=== PATIENT | female | born 1995 | race American Indian/Alaskan Native ===

== ENCOUNTER 2020-05-27 15:40 | Emergency (ER) | payer SELFPAY | END 2020-05-27 17:07 | disposition left against medical advice (07) | LOC: DL.ED 15:40 | DX: Z53.21 Procedure and treatment not carried out due to patient leaving prior to being seen by health care provider (principal) ==

== ENCOUNTER 2020-05-27 19:09 | Emergency (ER) | payer MEDICAID ==
[2020-05-27 20:44] LABS: ANION GAP 14.7 mEq/L (7-13); CHLORIDE,CL 102 mmol/L (98-107); SODIUM,NA 137 mmol/L (136-145)
--- NOTE | 2020-05-27 21:46 | EDM.PDOC ---
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 No fever chills. Reports 5 weeks . No complications with 4 years ago. No prior hx ovarian cysts. No vomiting Right Lower Abdomen Pain Score (Numeric/FACES): 7 - Related Data Allergies Allergy/AdvReac Type Severity Reaction Status Date / Time No Known Allergies Allergy Verified 05/27/20 20:04 Home Meds: Home Meds . 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: Musculoskeletal History: Reports: None Neurological History: Reports: None Psychiatric History: Reports: None Endocrine/Metabolic History: Reports: None Hematologic History: Reports: None Immunologic History: Reports: None Oncologic (Cancer) History: Reports: None Dermatologic History: Reports: None - Infectious Disease History Infectious Disease History: Reports: None Social & Family History - Tobacco Use Smoking Status *Q: Light Tobacco Smoker Years of Tobacco use: 9 Packs/Tins Daily: 0.4 - Recreational Drug Use Recreational Drug Use: No ED ROS GENERAL - Review of Systems Review Of Systems: Comprehensive ROS is negative, except as noted in HPI. Constitutional: Denies: Fever, Chills ED EXAM - Physical Exam Exam: See Below Exam Limited By: No Limitations General Appearance: Alert, No Apparent Distress, Anxious Eye Exam: Bilateral Eye: EOMI, PERRL Ears: Normal External Exam, Hearing Grossly Normal Nose: Normal Inspection Throat/Mouth: Normal Inspection Head: Atraumatic, Normocephalic Neck: Normal Inspection Respiratory/Chest: No Respiratory Distress, Lungs Clear, Normal Breath Sounds Cardiovascular: Normal Peripheral Pulses, Regular Rate, Rhythm GI/Abdominal Exam: Normal Bowel Sounds, Soft, Tender (right groin lower right quadrant). No: Distended, Guarding, Rebound, Hernia Extremities: Normal Inspection Neurological: Alert, Oriented, Normal Cognition Psychiatric: Normal Affect, Normal Mood Skin Exam: Warm, Dry, Intact Course - Vital Signs Last Recorded V/S: Last Vital Signs Temp 97.3 F 05/27/20 20:16 Pulse 65 05/27/20 20:16 Resp 18 05/27/20 20:16 BP 113/69 05/27/20 20:16 Pulse Ox 99 05/27/20 20:16 - Orders/Labs/Meds Orders: Active Orders 24 hr Category Date Time Status CULTURE URINE [RM] Stat Lab 05/27/20 20:10 Received Labs: Laboratory Tests 05/27/20 05/27/20 05/27/20 Range/Units 20:10 20:10 20:10 WBC (5.0-10.0) 10^3/uL RBC (4.2-5.4) 10^6/uL Hgb (12.0-16.0) g/dL Hct (37.0-47.0) % MCV (80-100) fL MCH (27.0-34.0) pg MCHC (33.0-35.0) g/dL Plt Count (150-450) 10^3/uL Neut % (Auto) (42.2-75.2) % Lymph % (Auto) (20.5-50.1) % [place] % (Auto) (2-8) % Eos % (Auto) (1.0-3.0) % Baso % (Auto) (0.0-1.0) % Sodium 137 (136-145) mmol/L Potassium 3.7 (3.5-5.1) mmol/L Chloride 102 (98-107) mmol/L Carbon Dioxide 24 (21-32) mmol/L Anion Gap 14.7 H (7-13) mEq/L BUN 5 L (7-18) mg/dL Creatinine 0.59 (0.55-1.02) mg/dL Est Cr Clr Drug Dosing 110.35 mL/min Estimated GFR (MDRD) > 60 BUN/Creatinine Ratio 8.5 (No establ ref range) Glucose 77 (74-99) mg/dL Calcium 9.2 (8.5-10.1) mg/dL Total Bilirubin 0.4 (0.2-1.0) mg/dL AST 18 (15-37) U/L ALT 24 (14-59) U/L Alkaline Phosphatase 97 (46-116) U/L Total Protein 7.9 (6.4-8.2) g/dL Albumin 3.6 (3.4-5.0) g/dL Globulin 4.3 Albumin/Globulin Ratio 0.8 HCG, Quant 6585 H (0-6) mIU/mL Urine Color Yellow (YELLOW) Urine Appearance Slightly cloudy (CLEAR) Urine pH 6.5 (5.0-9.0) Ur Specific [place] 1.020 (1.005-1.030) Urine Protein Negative (NEGATIVE) Urine Glucose (UA) Negative (NEGATIVE) Urine Ketones Negative (NEGATIVE) Urine Occult Blood Negative (NEGATIVE) Urine Nitrite Negative (NEGATIVE) Urine Bilirubin Negative (NEGATIVE) Urine Urobilinogen 0.2 (0.2-1.0) mg/dL Ur Leukocyte Esterase Trace H (NEGATIVE) Urine RBC 0-5 /HPF Urine WBC 0-5 (0-5/HPF) /HPF Ur Epithelial Cells Few (NOT SEEN) /HPF Urine Bacteria Rare (0-FEW/HPF) /HPF Urine Mucus Rare (NOT SEEN) /LPF Urine Opiates Screen (NEGATIVE) Ur Oxycodone Screen (NEGATIVE) Urine Methadone Screen (NEGATIVE) Ur Barbiturates Screen (NEGATIVE) U Tricyclic Antidepress (NEGATIVE) Ur Phencyclidine Scrn (NEGATIVE) Ur Amphetamine Screen (NEGATIVE) U Methamphetamines Scrn (NEGATIVE) Urine MDMA Screen (NEGATIVE) U Benzodiazepines Scrn (NEGATIVE) Urine Cocaine Screen (NEGATIVE) U Marijuana (THC) Screen (NEGATIVE) 05/27/20 05/27/20 Range/Units 20:10 20:18 WBC 11.6 H (5.0-10.0) 10^3/uL RBC 4.67 (4.2-5.4) 10^6/uL Hgb 12.6 (12.0-16.0) g/dL Hct 38.3 (37.0-47.0) % MCV 82.0 (80-100) fL MCH 27.0 (27.0-34.0) pg MCHC 32.9 L (33.0-35.0) g/dL Plt Count 299 (150-450) 10^3/uL Neut % (Auto) 76.3 H (42.2-75.2) % Lymph % (Auto) 17.8 L (20.5-50.1) % [place] % (Auto) 4.5 (2-8) % Eos % (Auto) 1.2 (1.0-3.0) % Baso % (Auto) 0.2 (0.0-1.0) % Sodium (136-145) mmol/L Potassium (3.5-5.1) mmol/L Chloride (98-107) mmol/L Carbon Dioxide (21-32) mmol/L Anion Gap (7-13) mEq/L BUN (7-18) mg/dL Creatinine (0.55-1.02) mg/dL Est Cr Clr Drug Dosing mL/min Estimated GFR (MDRD) BUN/Creatinine Ratio (No establ ref range) Glucose (74-99) mg/dL Calcium (8.5-10.1) mg/dL Total Bilirubin (0.2-1.0) mg/dL AST (15-37) U/L ALT (14-59) U/L Alkaline Phosphatase (46-116) U/L Total Protein (6.4-8.2) g/dL Albumin (3.4-5.0) g/dL Globulin Albumin/Globulin Ratio HCG, Quant (0-6) mIU/mL Urine Color (YELLOW) Urine Appearance (CLEAR) Urine pH (5.0-9.0) Ur Specific [place] (1.005-1.030) Urine Protein (NEGATIVE) Urine Glucose (UA) (NEGATIVE) Urine Ketones (NEGATIVE) Urine Occult Blood (NEGATIVE) Urine Nitrite (NEGATIVE) Urine Bilirubin (NEGATIVE) Urine Urobilinogen (0.2-1.0) mg/dL Ur Leukocyte Esterase (NEGATIVE) Urine RBC /HPF Urine WBC (0-5/HPF) /HPF Ur Epithelial Cells (NOT SEEN) /HPF Urine Bacteria (0-FEW/HPF) /HPF Urine Mucus (NOT SEEN) /LPF Urine Opiates Screen Negative (NEGATIVE) Ur Oxycodone Screen Negative (NEGATIVE) Urine Methadone Screen Negative (NEGATIVE) Ur Barbiturates Screen Negative (NEGATIVE) U Tricyclic Antidepress Negative (NEGATIVE) Ur Phencyclidine Scrn Negative (NEGATIVE) Ur Amphetamine Screen Negative (NEGATIVE) U Methamphetamines Scrn Negative (NEGATIVE) Urine MDMA Screen Negative (NEGATIVE) U Benzodiazepines Scrn Negative (NEGATIVE) Urine Cocaine Screen Negative (NEGATIVE) U Marijuana (THC) Screen Negative (NEGATIVE) Departure - Departure Time of Disposition: 22:24 Disposition: Home, Self-Care 01 Condition: Good Clinical Impression: Pain in pelvis, Intrauterine - Discharge Information *PRESCRIPTION DRUG MONITORING PROGRAM REVIEWED*: No *COPY OF PRESCRIPTION DRUG MONITORING REPORT IN PATIENT ROBIN: No Instructions: Round Ligament Pain Referrals: PCP,None [Ordering Only Provider] - Forms: ED Department Discharge Additional Instructions: rest light activity increase fluid intake tylenol for discomfort follow up in clinic if symptoms worsen Sepsis Event Note (ED) - Evaluation Sepsis Screening Result: No Definite Risk - Focused Exam Vital Signs: Vital Signs Temp Pulse Resp BP Pulse Ox 05/27/20 20:16 97.3 F 65 18 113/69 99 - My Orders Last 24 Hours: My Active Orders 05/27/20 20:10 CULTURE URINE [RM] Stat - Assessment/Plan Last 24 Hours: My Active Orders 05/27/20 20:10 CULTURE URINE [RM] Stat
--- NOTE | 2020-05-27 22:19 | US ---
PROCEDURE INFORMATION: Exam: US , Limited Exam date and time: 05/27/2020 9:48 PM Age: 25 years old Clinical indication: complicated by abdominal or pelvic pain; Other: Cervix; Gestational age or lmp: 5w2d; ; Additional info: Roq pain 5 weeks pg 6500 quant TECHNIQUE: Imaging protocol: Real-time ultrasound of the maternal uterus with image documentation. Exam focused on the clinical indication. COMPARISON: No relevant prior studies available. FINDINGS: Gestation: There is a single, living intrauterine gestation. The gestational sac contains a recognizable yolk sac. BIOMETRY: Gestational age (AUA): Mean sac diameter corresponds to an estimated gestational age of 5 weeks 4 days. Estimated due date (AUA): Estimated date of delivery based on this sonogram is 01/23/2021 MATERNAL: Right adnexa: The right ovary measures 2 by 2.6 x 2.4 cm. It contains a 1.3 cm corpus luteum. The ovary has normal morphology and appropriate color Doppler activity. Left adnexa: The left ovary measures 1.2 by 2.3 x 2.4 cm. The ovary has normal morphology and appropriate color Doppler activity. Intraperitoneal space: There is a small amount of free fluid present. IMPRESSION: Single, 5 week 4 day intrauterine gestation.
--- NOTE | 2020-05-28 14:09 | US ---
PROCEDURE INFORMATION: Exam: US , Transvaginal Exam date and time: 05/27/2020 9:48 PM Age: 25 years old Clinical indication: complicated by abdominal or pelvic pain; Other: Cervix; Gestational age or lmp: 5w2d; ; Additional info: Roq pain 5 weeks pg 6500 quant TECHNIQUE: Imaging protocol: Real-time transvaginal obstetrical ultrasound of the maternal pelvis and a first trimester with image documentation. Transvaginal imaging was used for better evaluation of the fetus and adnexa. COMPARISON: No relevant prior studies available. FINDINGS: Gestation: There is a single, living intrauterine gestation. The gestational sac contains a recognizable yolk sac. BIOMETRY: Gestational age (AUA): Mean sac diameter corresponds to an estimated gestational age of 5 weeks 4 days. Estimated due date (AUA): Estimated date of delivery based on this sonogram is 01/23/2021 MATERNAL: Right adnexa: The right ovary measures 2 by 2.6 x 2.4 cm. It contains a 1.3 cm corpus luteum. The ovary has normal morphology and appropriate color Doppler activity. Left adnexa: The left ovary measures 1.2 by 2.3 x 2.4 cm. The ovary has normal morphology and appropriate color Doppler activity. Intraperitoneal space: There is a small amount of free fluid present. IMPRESSION: Single, 5 week 4 day intrauterine gestation.
== END 2020-05-27 22:30 | disposition home or self-care (01) ==
LOC: DL.ED 19:09
DX: R10.2 Pelvic and perineal pain (principal); O00.01 Abdominal pregnancy with intrauterine pregnancy; O99.89 Other specified diseases and conditions complicating pregnancy, childbirth and the puerperium; F17.210 Nicotine dependence, cigarettes, uncomplicated; Z3A.01 Less than 8 weeks gestation of pregnancy
CPT/HCPCS: 36415; 76815; 76817; 80053; 80305-QW; 81001; 84702; 85025; 87086; 99283; 99284-25

== ENCOUNTER 2020-06-29 19:06 | Emergency (ER) | payer MEDICAID ==
--- NOTE | 2020-06-29 19:27 | EDM.PDOC ---
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 been having on-off cramps past week and today had some spotting not soaking a pad ~ hour ago. just moved here and planning [facility] visit. [id number]. states prior wasn't like this. - Related Data Allergies Allergy/AdvReac Type Severity Reaction Status Date / Time No Known Allergies Allergy Verified 06/29/20 19:20 Home Meds: Home Meds . 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: Musculoskeletal History: Reports: None Neurological History: Reports: None Psychiatric History: Reports: None Endocrine/Metabolic History: Reports: None Hematologic History: Reports: None Immunologic History: Reports: None Oncologic (Cancer) History: Reports: None Dermatologic History: Reports: None - Infectious Disease History Infectious Disease History: Reports: None Social & Family History - Tobacco Use Tobacco Use Status *Q: Never Tobacco User - Caffeine Use Caffeine Use: Reports: None ED ROS GENERAL - Review of Systems Review Of Systems: Comprehensive ROS is negative, except as noted in HPI. ED EXAM - Physical Exam Exam: See Below Exam Limited By: No Limitations General Appearance: Alert, WD/WN, No Apparent Distress. No: Active Emesis Ears: Hearing Grossly Normal Throat/Mouth: Normal Voice, No Airway Compromise Head: Atraumatic Neck: Non-Tender, Full Range of Motion Respiratory/Chest: No Respiratory Distress Cardiovascular: Regular Rate, Rhythm GI/Abdominal Exam: Soft, Tender, Other (minor low abd discomfort) Rectal Exam: Deferred (Female) Exam: Other (deferred) Neurological: Alert, Oriented, Normal Cognition, Normal Gait, No Motor/Sensory Deficits Psychiatric: Normal Affect, Normal Mood Skin Exam: Warm, Dry, Normal Color Lymphatic: No Adenopathy Course - Vital Signs Last Recorded V/S: Last Vital Signs Temp 36.3 C 06/29/20 19:14 Pulse 91 06/29/20 19:14 Resp 19 06/29/20 19:14 BP 145/87 H 06/29/20 19:14 Pulse Ox 100 06/29/20 19:14 - Orders/Labs/Meds Labs: Laboratory Tests 06/29/20 06/29/20 06/29/20 Range/Units 19:25 19:25 19:25 WBC 11.4 H (5.0-10.0) 10^3/uL RBC 4.39 (4.2-5.4) 10^6/uL Hgb 12.0 (12.0-16.0) g/dL Hct 36.3 L (37.0-47.0) % MCV 82.7 (80-100) fL MCH 27.3 (27.0-34.0) pg MCHC 33.1 (33.0-35.0) g/dL Plt Count 254 (150-450) 10^3/uL Neut % (Auto) 77.8 H (42.2-75.2) % Lymph % (Auto) 17.2 L (20.5-50.1) % [place] % (Auto) 4.2 (2-8) % Eos % (Auto) 0.6 L (1.0-3.0) % Baso % (Auto) 0.2 (0.0-1.0) % Sodium (136-145) mmol/L Potassium (3.5-5.1) mmol/L Chloride (98-107) mmol/L Carbon Dioxide (21-32) mmol/L Anion Gap (7-13) mEq/L BUN (7-18) mg/dL Creatinine (0.55-1.02) mg/dL Est Cr Clr Drug Dosing mL/min Estimated GFR (MDRD) BUN/Creatinine Ratio (No establ ref range) Glucose (74-99) mg/dL Calcium (8.5-10.1) mg/dL Total Bilirubin (0.2-1.0) mg/dL AST (15-37) U/L ALT (14-59) U/L Alkaline Phosphatase (46-116) U/L Total Protein (6.4-8.2) g/dL Albumin (3.4-5.0) g/dL Globulin g/dL Albumin/Globulin Ratio HCG, Quant (0-6) mIU/mL Urine Color Yellow (YELLOW) Urine Appearance Slightly cloudy (CLEAR) Urine pH 7.0 (5.0-9.0) Ur Specific [place] 1.025 (1.005-1.030) Urine Protein Negative (NEGATIVE) Urine Glucose (UA) Negative (NEGATIVE) Urine Ketones Negative (NEGATIVE) Urine Occult Blood Trace-intact H (NEGATIVE) Urine Nitrite Negative (NEGATIVE) Urine Bilirubin Negative (NEGATIVE) Urine Urobilinogen 1.0 (0.2-1.0) mg/dL Ur Leukocyte Esterase Negative (NEGATIVE) Urine RBC 0-5 /HPF Urine WBC 0-5 (0-5/HPF) /HPF Ur Epithelial Cells Moderate H (NOT SEEN) /HPF Urine Bacteria Moderate H (0-FEW/HPF) /HPF Urine Mucus Moderate H (NOT SEEN) /LPF Urine Yeast Moderate H (NOT SEEN) /HPF Urine Opiates Screen Negative (NEGATIVE) Ur Oxycodone Screen Negative (NEGATIVE) Urine Methadone Screen Negative (NEGATIVE) Ur Barbiturates Screen Negative (NEGATIVE) U Tricyclic Antidepress Negative (NEGATIVE) Ur Phencyclidine Scrn Negative (NEGATIVE) Ur Amphetamine Screen Negative (NEGATIVE) U Methamphetamines Scrn Negative (NEGATIVE) Urine MDMA Screen Negative (NEGATIVE) U Benzodiazepines Scrn Negative (NEGATIVE) Urine Cocaine Screen Negative (NEGATIVE) U Marijuana (THC) Screen Negative (NEGATIVE) 06/29/20 06/29/20 Range/Units 19:25 19:25 WBC (5.0-10.0) 10^3/uL RBC (4.2-5.4) 10^6/uL Hgb (12.0-16.0) g/dL Hct (37.0-47.0) % MCV (80-100) fL MCH (27.0-34.0) pg MCHC (33.0-35.0) g/dL Plt Count (150-450) 10^3/uL Neut % (Auto) (42.2-75.2) % Lymph % (Auto) (20.5-50.1) % [place] % (Auto) (2-8) % Eos % (Auto) (1.0-3.0) % Baso % (Auto) (0.0-1.0) % Sodium 141 (136-145) mmol/L Potassium 3.3 L (3.5-5.1) mmol/L Chloride 106 (98-107) mmol/L Carbon Dioxide 25 (21-32) mmol/L Anion Gap 13.3 H (7-13) mEq/L BUN 15 (7-18) mg/dL Creatinine 0.66 (0.55-1.02) mg/dL Est Cr Clr Drug Dosing 119.86 mL/min Estimated GFR (MDRD) > 60 BUN/Creatinine Ratio 22.7 (No establ ref range) Glucose 95 (74-99) mg/dL Calcium 8.2 L (8.5-10.1) mg/dL Total Bilirubin 0.4 (0.2-1.0) mg/dL AST 19 (15-37) U/L ALT 28 (14-59) U/L Alkaline Phosphatase 93 (46-116) U/L Total Protein 6.5 (6.4-8.2) g/dL Albumin 3.2 L (3.4-5.0) g/dL Globulin 3.3 g/dL Albumin/Globulin Ratio 0.97 HCG, Quant 61574 H (0-6) mIU/mL Urine Color (YELLOW) Urine Appearance (CLEAR) Urine pH (5.0-9.0) Ur Specific [place] (1.005-1.030) Urine Protein (NEGATIVE) Urine Glucose (UA) (NEGATIVE) Urine Ketones (NEGATIVE) Urine Occult Blood (NEGATIVE) Urine Nitrite (NEGATIVE) Urine Bilirubin (NEGATIVE) Urine Urobilinogen (0.2-1.0) mg/dL Ur Leukocyte Esterase (NEGATIVE) Urine RBC /HPF Urine WBC (0-5/HPF) /HPF Ur Epithelial Cells (NOT SEEN) /HPF Urine Bacteria (0-FEW/HPF) /HPF Urine Mucus (NOT SEEN) /LPF Urine Yeast (NOT SEEN) /HPF Urine Opiates Screen (NEGATIVE) Ur Oxycodone Screen (NEGATIVE) Urine Methadone Screen (NEGATIVE) Ur Barbiturates Screen (NEGATIVE) U Tricyclic Antidepress (NEGATIVE) Ur Phencyclidine Scrn (NEGATIVE) Ur Amphetamine Screen (NEGATIVE) U Methamphetamines Scrn (NEGATIVE) Urine MDMA Screen (NEGATIVE) U Benzodiazepines Scrn (NEGATIVE) Urine Cocaine Screen (NEGATIVE) U Marijuana (THC) Screen (NEGATIVE) Meds: Medications Discontinued Medications Generic Name Dose Route Start Last Admin Trade Name Freq PRN Reason Stop Dose Admin Nitrofurantoin Macrocrystals 100 mg 06/29/20 20:31 Macrobid PO 06/29/20 20:32 ONETIME ONE - Re-Assessments/Exams Free Text/Narrative Re-Assessment/Exam: 06/29/20 20:32 results discussed with pt Departure - Departure Time of Disposition: 20:33 Disposition: Home, Self-Care 01 Condition: Good Clinical Impression: Intrauterine UTI (urinary tract infection) Qualifiers: Urinary tract infection type: acute cystitis Hematuria presence: with hematuria Qualified Code(s): N30.01 - Acute cystitis with hematuria - Discharge Information Instructions: Urinary Tract Infection, Adult, [id number] Forms: ED Department Discharge Additional Instructions: 1) rest 2) drink lots of liquids 3) follow up at clinic tomorrow rx given; macrobid 100mg bid x 1 week Sepsis Event Note (ED) - Evaluation Sepsis Screening Result: No Definite Risk - Focused Exam Vital Signs: Vital Signs Temp Pulse Resp BP Pulse Ox 06/29/20 19:14 36.3 C 91 19 145/87 H 100
[2020-06-29 20:12] LABS: SODIUM,NA 141 mmol/L (136-145)
[2020-06-29 20:13] LABS: ANION GAP 13.3 mEq/L (7-13); CHLORIDE,CL 106 mmol/L (98-107)
[2020-06-29] MEDS ORDERED: Nitrofurantoin Monohydrate/Macrocrystalline 100 MG Cap PO ONE (20:31)
== END 2020-06-29 20:40 | disposition home or self-care (01) ==
LOC: DL.ED 19:06
DX: O00.01 Abdominal pregnancy with intrauterine pregnancy (principal); O23.31 Infections of other parts of urinary tract in pregnancy, first trimester; N30.01 Acute cystitis with hematuria; Z3A.10 10 weeks gestation of pregnancy
CPT/HCPCS: 36415; 80053; 80305; 81001; 84702; 85025; 99284; A9270

== ENCOUNTER 2021-10-27 05:53 | Inpatient (IN) | payer MEDICAID ==
[2021-10-27] MEDS: Lactated Ringers 1,000 ML IV ONE ×2 (06:00→08:13)
[2021-10-27] MEDS ORDERED: Oxytocin/Normal Saline 60 UNIT/1,000 ML BAG ONE (06:06)
[2021-10-27] MEDS ORDERED: Betamethasone Acetate/Betamethasone Sod Phosphate 30 MG/5 ML MDV ONE (06:09)
[2021-10-27] MEDS: Betamethasone Acetate/Betamethasone Sod Phosphate 30 MG/5 ML MDV IM ONE ×2 (06:12→08:50)
[2021-10-27] MEDS ORDERED: Citric Acid/Sodium Citrate Solution 30 ML Cup ONE (06:19)
[2021-10-27] MEDS ORDERED: Misoprostol 400 MCG (4 X 100 MCG TAB) RECTAL PRN (06:51)
[2021-10-27] MEDS ORDERED: Oxytocin 10 Units/1 ML SDV IM PRN (06:51)
[2021-10-27] MEDS ORDERED: Tranexamic Acid 1,000 MG in Sodium Chloride 0.9% 100 ML IV PRN (06:51)
[2021-10-27] MEDS ORDERED: Benzocaine/Menthol 20%-0.5% Spray 78 GM Cannister TOP PRN (06:51)
[2021-10-27] MEDS ORDERED: Acetaminophen 325 MG Tab PO PRN (06:51)
[2021-10-27] MEDS ORDERED: Sodium Chloride 0.9% 10 ML Syringe FLUSH PRN (06:51)
[2021-10-27] MEDS ORDERED: Simethicone 80 MG Tab.Chew PO PRN (06:51)
[2021-10-27] MEDS ORDERED: Carboprost Tromethamine 250 MCG/1 ML Amp IM PRN (06:51)
[2021-10-27] MEDS ORDERED: Oxytocin/Normal Saline 30 UNIT/500 ML BAG IV SCH (07:00)
[2021-10-27] MEDS: Ferrous Sulfate 325 MG Tab PO SCH (08:08)
[2021-10-27] MEDS: Prenatal Multivitamin with Calcium/Folic Acid/Iron Tab PO SCH (08:08)
[2021-10-27] MEDS: Docusate Sodium 100 MG Cap PO PRN (08:08)
[2021-10-27] MEDS: Ibuprofen 800 MG Tab PO PRN ×2 (08:08→17:25)
[2021-10-27 09:45] LABS: AMPHETAMINES,URINE NEGATIVE (NEGATIVE); BARBITURATES,URINE NEGATIVE (NEGATIVE); BENZODIAZEPINE,URINE NEGATIVE (NEGATIVE); MDMA (ECSTASY), URINE NEGATIVE (NEGATIVE); METHADONE,URINE NEGATIVE (NEGATIVE); METHAMPHETAMINES,URINE NEGATIVE (NEGATIVE); OPIATES,URINE NEGATIVE (NEGATIVE); OXYCODONE,URINE NEGATIVE (NEGATIVE); PHENCYCLIDINE,URINE NEGATIVE (NEGATIVE); TCA,URINE NEGATIVE (NEGATIVE)
[2021-10-27] MEDS ORDERED: Oxytocin/Normal Saline 30 UNIT/500 ML BAG IV ONE (14:10)
[2021-10-28] MEDS: Ibuprofen 800 MG Tab PO PRN ×2 (01:43→09:24)
[2021-10-28] MEDS: Ferrous Sulfate 325 MG Tab PO SCH (09:24)
[2021-10-28] MEDS: Prenatal Multivitamin with Calcium/Folic Acid/Iron Tab PO SCH (09:24)
[2021-10-28] MEDS: Docusate Sodium 100 MG Cap PO PRN (09:24)
== END 2021-10-28 10:30 | disposition home or self-care (01) | DRG 805 ==
LOC: DL.OBCHECK 05:53 → DL.OB 06:30 → UNDOADMIN 06:52
PROVIDERS: ADMIT Family Medicine; ATTEND Family Medicine
PROC: 10E0XZZ Delivery of Products of Conception, External Approach (ICD-10-PCS; principal; 2021-10-27)
DX: O60.14X0 Preterm labor third trimester with preterm delivery third trimester, not applicable or unspecified (principal); O45.93 Premature separation of placenta, unspecified, third trimester; Z37.0 Single live birth; Z3A.33 33 weeks gestation of pregnancy; O34.211 Maternal care for low transverse scar from previous cesarean delivery; O32.1XX0 Maternal care for breech presentation, not applicable or unspecified; Z20.822 Contact with and (suspected) exposure to COVID-19
CPT/HCPCS: 01960; 36415; 59409; 76815; 80305-QW; 85025; 85027; 86850; 86900; 86901; 86920; 86922; A9270-GY; J0702; J2590; J7120; U0002

== ENCOUNTER 2022-06-29 17:11 | Emergency (ER) | payer MEDICAID ==
[2022-06-29 18:11] LABS: BARBITURATE SCREEN,URINE NEGATIVE (NEGATIVE); BENZODIAZEPINES SCREEN,URINE NEGATIVE (NEGATIVE); TCA SCREEN,URINE NEGATIVE (NEGATIVE)
[2022-06-29] MEDS ORDERED: Nitrofurantoin Monohydrate/Macrocrystalline 100 MG Cap PO ONE (19:30)
[2022-06-29] MEDS ORDERED: Phenazopyridine 95 MG Tab PO ONE (19:30)
== END 2022-06-29 19:41 | disposition home or self-care (01) ==
LOC: DL.ED 17:11
DX: N39.0 Urinary tract infection, site not specified (principal); F17.210 Nicotine dependence, cigarettes, uncomplicated; Z88.7 Allergy status to serum and vaccine; Z90.49 Acquired absence of other specified parts of digestive tract
CPT/HCPCS: 80305; 81001; 81025; 87086; 87088; 87186; 99282; 99284; A9270

== ENCOUNTER 2022-10-10 20:52 | Emergency (ER) | payer MEDICAID | END 2022-10-10 22:01 | disposition home or self-care (01) | LOC: DL.ED 20:52 | DX: S83.412A Sprain of medial collateral ligament of left knee, initial encounter (principal); Z88.7 Allergy status to serum and vaccine; W18.2XXA Fall in (into) shower or empty bathtub, initial encounter; Y93.E1 Activity, personal bathing and showering | CPT/HCPCS: 73562-LT; 99282; 99283 ==

== ENCOUNTER 2024-05-15 23:12 | Emergency (ER) | payer MEDICAID ==
[2024-05-16] MEDS: Diphtheria,Pertussis(Acell),Tetanus Vaccine 0.5 ML Syringe IM ONE (00:39)
[2024-05-16 00:57] LABS: BASOPHILS PERCENT AUTO 0.2 % (0.0-1.0); HEMATOCRIT 37.8 % (37.0-47.0); LYMPHOCYTES PERCENT AUTO 24.4 % (20.5-50.1); MEAN CORPUSCULAR HEMOGLOBIN 26.2 pg (27.0-34.0); MEAN CORPUSCULAR HGB CONC 31.7 g/dL (33.0-35.0); MEAN CORPUSCULAR VOLUME 82.5 fL (80-100); MONOCYTES PERCENT AUTO 5.6 % (2-8); NEUTROPHILS PERCENT AUTO 68.8 % (42.2-75.2); PLATELET COUNT,PLT 301 10^3/uL (150-450); RED BLOOD CELL COUNT 4.58 10^6/uL (4.2-5.4); WHITE BLOOD CELL COUNT,WBC 14.5 10^3/uL (5.0-10.0)
[2024-05-16] MEDS: Acetaminophen 325 MG Tab PO ONE (01:01)
[2024-05-16] MEDS: cefTRIAXone 1 GM Vial IVPUSH ONE (01:01)
[2024-05-16 01:07] LABS: A/G RATIO 0.9; ALBUMIN 3.6 g/dL (3.4-5.0); ANION GAP 13.3 mEq/L (7-13); BILIRUBIN TOTAL 0.3 mg/dL (0.2-1.0); BUN/CREATININE RATIO 8.5 (No establ ref range); CALCIUM 9.1 mg/dL (8.5-10.1); CREATININE 0.82 mg/dL (0.55-1.02); EST CRCL DRUG DOSING (CG) 93.06 mL/min; POTASSIUM,K 3.3 mmol/L (3.5-5.1); PROTEIN TOTAL,TP 7.7 g/dL (6.4-8.2)
[2024-05-16] MEDS: Potassium Chloride 10 MEQ Tab.ER PO ONE (01:17)
[2024-05-16] MEDS: Potassium Chloride 10 MEQ Tab.ER ONE (02:22)
== END 2024-05-16 01:30 | disposition home or self-care (01) ==
LOC: DL.ED 23:12
DX: L03.113 Cellulitis of right upper limb (principal); E87.6 Hypokalemia; Z88.7 Allergy status to serum and vaccine; F17.200 Nicotine dependence, unspecified, uncomplicated; W57.XXXA Bitten or stung by nonvenomous insect and other nonvenomous arthropods, initial encounter
CPT/HCPCS: 36415; 80053; 85025; 90471; 90715; 96374; 99283; A9270; J0696